=== PATIENT | female | born 1945 | race Caucasian/White ===

== ENCOUNTER 2021-03-18 19:03 | Inpatient (IN) ==
[2021-03-18] MEDS ORDERED: ACETAMINOPHEN 325 MG TABLET PO ONE ×2 (19:10→20:13)
[2021-03-18 20:12] LABS: Hematocrit 37.6 % (36.0-48.0); Mean Cell Volume 101.9 fL (80.0-100.0); Mean Corpuscular HGB Conc 31.9 g/dL (31.0-36.0); Mean Platelet Volume 10.8 fL (7.4-10.4); Platelet Count 265 K/mcL (140-440); RBC 3.69 M/mcL (4.00-5.20); Red Cell Distribution Width 18.3 % (11.5-14.5)
[2021-03-18] MEDS ORDERED: LEVOFLOXACIN 750 MG/150 ML BAG IV ONE (20:13)
[2021-03-18] MEDS ORDERED: 0.9 % SODIUM CHLORIDE 1,000 ML IV ONE ×3 (20:13→21:05)
[2021-03-18 20:24] LABS: Appearance,Urine HAZY (Clear); Bilirubin,Urine NEG (Negative); Color,Urine Yellow; Glucose,Urine (UA) NEG (Negative); Ketones,Urine 5 mg/dL (Negative); Leukocyte Esterase,Urine NEG /ug (Negative); Mucus,Urine FEW /hpf; Nitrate,Urine NEG (Negative); Protein,Urine 100 mg/dL (Negative); Urine RBC < 1 /hpf (0-3); Urine Squamous Epithelial Cell 0 /hpf (0-4); Urine WBC < 1 /hpf (0-4); Urobilinogen,Urine NEG
[2021-03-18 20:37] LABS: ALT/SGPT 71 U/L (<40); AST/SGOT 60 U/L (<32); Albumin 3.4 gm/dL (3.2-5.2); Albumin/Globulin Ratio 0.8 (1.0-2.3); Alkaline Phosphatase 99 U/L (39-117); Bilirubin,Total 0.4 mg/dL (0.1-1.0); Blood Urea Nitrogen 23 mg/dL (8-23); Calcium 9.1 mg/dL (8.6-10.4); Carbon Dioxide 20 mmol/L (22-30); Chloride 100 mmol/L (96-108); Globulin 4.1 gm/dL (2.2-3.7); Glomerular Filtration Rate 44; Glucose 113 mg/dL (70-105)
[2021-03-18 20:58] LABS: Band Neutrophils % 15 % (0-10); Lymphocytes % 4 % (15-49); Monocytes % (Manual) 2 % (1-12); Platelet Estimate NORMAL (Normal); RBC Morphology NORMAL (Normal); Segmented Neutrophils % 79 % (38-78)
--- NOTE | 2021-03-18 21:01 | Emergency Department Note ---
Weakness HPI General Chief complaint: Weakness Stated complaint: Weakness Time Seen by Provider: 03/18/21 19:25 Source: patient and EMS Mode of arrival: EMS Limitations: no limitations History of Present Illness HPI Narrative: Narrative: 75-year-old female presents to the emergency department after arrival in [facility] [place]. She began to feel weak 1 day ago (yesterday) and it got worse today she finds herself too weak to stand. She has been having trouble breathing which she attributes to her COPD. She denies any pain associated with this. Nothing makes it better or worse. Not associated with any recent injury. She did have a Covid infection and subsequently Covid vaccine in the past. MD Complaint: generalized weakness Onset (ago): day(s) (1) Duration: constant Location: generalized Migration: none Severity: severe Improves with: none Worsens with: none Context: other (Concurrent with a new fever.) Associated symptoms: Reports fever/chills Related Data Home Medications Medication Instructions Recorded Confirmed amlodipine 2.5 mg PO QDAY 03/18/21 03/18/21 budesonide-formoterol [Symbicort] 2 puff INHALATION BID 03/18/21 03/18/21 bupropion HCl 150 mg PO QAM 03/18/21 03/18/21 metoprolol succinate 50 mg PO QDAY 03/18/21 03/18/21 simvastatin 20 mg PO QHS 03/18/21 03/18/21 umeclidinium [Incruse Ellipta] 2 inh INHALATION DAILYP PRN 03/18/21 03/18/21 Allergies Allergy/AdvReac Type Severity Reaction Status Date / Time No Known Drug Allergies Allergy Verified 03/18/21 19:10 Review of Systems ROS ROS Narrative: Narrative: Constitutional: Reports fever and chills Eyes: Denies eye pain ENT ED: Denies throat pain Cardiovascular: Denies chest pain Respiratory: Reports shortness of breath Gastrointestinal: Denies abdominal pain, nausea and vomiting Genitourinary: Reports other (Difficulty urinating); Denies dysuria Integumentary: Denies rash Neurological: Reports headache and dizziness Psychiatric: Denies depression Hematological/Lymphatic: Denies easy bleeding Allergic/Immunologic: Denies facial swelling PFSH Narrative Patient History Narrative: Narrative: Medical/Surgical/Family History All Active Problems (Updated 03/19/21 @ 08:36 by Kingsley Bryson MD) Sepsis (Acute) Left upper lobe pneumonia (Acute) Mixed dyslipidemia (Acute) Essential (primary) hypertension (Acute) Stage 1 acute kidney injury (Acute) Clinical sepsis (Acute) COPD (chronic obstructive pulmonary disease) (Acute) Community acquired pneumonia (Acute) Acute and chronic respiratory failure (Acute) Social History Smoking Status: Former smoker Exam Narrative Narrative: Narrative: General Limitations: no limitations General appearance: Present alert and in distress Head Head: Present atraumatic and normocephalic Eye Eye: Present PERRL and EOMI ENT ENT: Present mucous membranes moist Neck Neck: Present full ROM and trachea midline Chest Chest: Present symmetric chest wall rise Respiratory Respiratory: Present respiratory distress and wheezes (Small wheeze anterior.) Cardiovascular Cardiovascular: Present normal rhythm and tachycardia Adbominal Abdominal: Present soft and other (Obese) Extremities Extremities: Present full ROM Back Back: Present normal inspection; Absent tenderness Neurological Neurological: Present alert and oriented X3 Psychiatric Psychiatric: Present normal affect and normal mood Skin Skin: Present warm (WNL) Course Reevaluation(s) Reevaluation #1: Patient returned from chest x-ray. I advised her that her chest x-ray showed a left upper lobe infiltrate/pneumonia. I advised her that her white count was elevated at 16,000. I advised her that she had sepsis and that we would be admitting her to the hospital. Patient was agreeable to all of that as was the . Patient is receiving her blood culture now and will be started on her Levaquin as soon as that blood draw is completed. Patient does not meet criteria for severe sepsis. Time: 20:50 Reevaluation #2: I discussed the case with the hospitalist. I advised him that the patient had sepsis and required admission. I reviewed with the hospitalist that the patient was tachycardic Time: 21:40 Vital Signs Vital signs: Vital Signs Temperature 104.0 F H 03/18/21 19:04 Pulse Rate 106 H 03/18/21 19:04 Respiratory Rate 22 03/18/21 19:04 Blood Pressure 170/77 03/18/21 19:04 Pulse Oximetry (%) 90 03/18/21 19:04 Temperature 97.2 F 03/19/21 07:42 Pulse Rate 87 03/19/21 07:42 Respiratory Rate 20 03/19/21 07:42 Blood Pressure 125/69 03/19/21 07:42 Pulse Oximetry (%) 93 03/19/21 07:42 MDM MDM Narrative Medical decision making narrative: Narrative: 75-year-old female presents to the emergency department with fever of 103.8 and tachycardia of 101. She is weak and having trouble breathing. Differential diagnosis would include sepsis, urinary tract infection, pneumonia, COPD exacerbation, pulmonary embolus Chest x-ray revealed a left upper lobe infiltrate. White count was elevated at 16,000 and the respiratory rate was elevated at 22. Patient met the criteria fo r sepsis. She did not meet the criteria for severe sepsis as she had a normal platelet count normal bilirubin normal lactate of 1.3 a UA that was unremarkable and a creatinine of only 1.2. I recognized earlier that she had likely sepsis and so do 2 sets of blood cultures followed by Levaquin 750 mg IV prior to the 3-hour alejandro. Patient was bolused 3 L of normal saline which was greater than 30 mL/kg. Patient improved with the IV fluid but remained tachycardic and needed hospitalization. I co ntacted our hospitalist who agreed to meet the patient for further care. Diagnosis 1 is sepsis #2 is pneumonia Lab Data Result diagrams: 03/18/21 19:28 03/18/21 19:28 Labs: Lab Results 03/18/21 03/18/21 03/18/21 Range/Units 19:28 19:28 19:28 WBC 16.0 H (4.5-11.0) K/mcL RBC 3.69 L (4.00-5.20) M/mcL Hgb 12.0 (12.0-15.0) g/dL Hct 37.6 (36.0-48.0) % MCV 101.9 H (80.0-100.0) fL MCH 32.5 (26.0-34.0) pg MCHC 31.9 (31.0-36.0) g/dL RDW 18.3 H (11.5-14.5) % Plt Count 265 (140-440) K/mcL MPV 10.8 H (7.4-10.4) fL Seg Neutrophils % 79 H (38-78) % Band Neutrophils % 15 H (0-10) % Lymphocytes % 4 L (15-49) % Monocytes % (Manual) 2 (1-12) % Platelet Estimate Normal (Normal) RBC Morphology Normal (Normal) VBG Lactic Acid 1.3 (0.5-2.0) mmol/L Sodium 136 (133-145) mmol/L Potassium 4.2 (3.3-5.1) mmol/L Chloride 100 (96-108) mmol/L Carbon Dioxide 20 L (22-30) mmol/L Anion Gap 16.0 (8.0-16.0) BUN 23 (8-23) mg/dL Creatinine 1.2 H (0.6-1.1) mg/dL GFR Calculation 44 Glucose 113 H (70-105) mg/dL Calcium 9.1 (8.6-10.4) mg/dL Total Bilirubin 0.4 (0.1-1.0) mg/dL AST 60 H (<32) U/L ALT 71 H (<40) U/L Alkaline Phosphatase 99 (39-117) U/L Troponin T (<0.03) ng/mL Total Protein 7.5 (5.9-8.4) gm/dL Albumin 3.4 (3.2-5.2) gm/dL Globulin 4.1 H (2.2-3.7) gm/dL Albumin/Globulin Ratio 0.8 L (1.0-2.3) Procalcitonin (<0.10) ng/mL Urine Color Urine Appearance (Clear) Urine pH (5.0-9.0) Ur Specific [place] (1.000-1.035) Urine Protein (Negative) mg/dL Urine Glucose (UA) (Negative) mg/dL Urine Ketones (Negative) mg/dL Urine Occult Blood (Negative) mg/dL Urine Nitrate (Negative) Urine Bilirubin (Negative) mg/dL Prot Sulfosalicylic Acd Urine Urobilinogen mg/dL Ur Leukocyte Esterase (Negative) /ug Urine RBC (0-3) /hpf Urine WBC (0-4) /hpf Ur Squamous Epith Cells (0-4) /hpf Ur Transition Epith Cell Ur Renal Epithelial Cell Calcium Carbonate Cryst Calcium Phosphate Cryst Calcium Oxalate Crystal Leucine Crystals Cystine Crystals Uric Acid Crystals Triple Phos Crystals Tyrosine Crystals Other Crystals Amorphous Crystals Urine Bacteria (0) /hpf Cellular Casts Epithelial Casts Fatty Casts Hyaline Casts Granular Casts Waxy Casts Broad Casts RBC Casts WBC Casts Other Casts Urine Mucus (None) /hpf Urine Trichomonas Ur Yeast w Hyphae Urine Yeast (Budding) Urine Sperm Ur Oval Fat Bodies Ur Free Fat Droplets Ur Culture Indicated? 03/18/21 03/18/21 03/18/21 Range/Units 19:28 19:47 22:28 WBC (4.5-11.0) K/mcL RBC (4.00-5.20) M/mcL Hgb (12.0-15.0) g/dL Hct (36.0-48.0) % MCV (80.0-100.0) fL MCH (26.0-34.0) pg MCHC (31.0-36.0) g/dL RDW (11.5-14.5) % Plt Count (140-440) K/mcL MPV (7.4-10.4) fL Seg Neutrophils % (38-78) % Band Neutrophils % (0-10) % Lymphocytes % (15-49) % Monocytes % (Manual) (1-12) % Platelet Estimate (Normal) RBC Morphology (Normal) VBG Lactic Acid (0.5-2.0) mmol/L Sodium (133-145) mmol/L Potassium (3.3-5.1) mmol/L Chloride (96-108) mmol/L Carbon Dioxide (22-30) mmol/L Anion Gap (8.0-16.0) BUN (8-23) mg/dL Creatinine (0.6-1.1) mg/dL GFR Calculation Glucose (70-105) mg/dL Calcium (8.6-10.4) mg/dL Total Bilirubin (0.1-1.0) mg/dL AST (<32) U/L ALT (<40) U/L Alkaline Phosphatase (39-117) U/L Troponin T 0.02 (<0.03) ng/mL Total Protein (5.9-8.4) gm/dL Albumin (3.2-5.2) gm/dL Globulin (2.2-3.7) gm/dL Albumin/Globulin Ratio (1.0-2.3) Procalcitonin 0.42 H (<0.10) ng/mL Urine Color Yellow Urine Appearance Hazy A (Clear) Urine pH 6.0 (5.0-9.0) Ur Specific [place] 1.020 (1.000-1.035) Urine Protein 100 A (Negative) mg/dL Urine Glucose (UA) Neg (Negative) mg/dL Urine Ketones 5 A (Negative) mg/dL Urine Occult Blood 0.20 (Negative) mg/dL Urine Nitrate Neg (Negative) Urine Bilirubin Neg (Negative) mg/dL Prot Sulfosalicylic Acd TNP Urine Urobilinogen Neg mg/dL Ur Leukocyte Esterase Neg (Negative) /ug Urine RBC < 1 (0-3) /hpf Urine WBC < 1 (0-4) /hpf Ur Squamous Epith Cells 0 (0-4) /hpf Ur Transition Epith Cell TNP Ur Renal Epithelial Cell TNP Calcium Carbonate Cryst TNP Calcium Phosphate Cryst TNP Calcium Oxalate Crystal TNP Leucine Crystals TNP Cystine Crystals TNP Uric Acid Crystals TNP Triple Phos Crystals TNP Tyrosine Crystals TNP Other Crystals TNP Amorphous Crystals TNP Urine Bacteria None (0) /hpf Cellular Casts TNP Epithelial Casts TNP Fatty Casts TNP Hyaline Casts TNP Granular Casts TNP Waxy Casts TNP Broad Casts TNP RBC Casts TNP WBC Casts TNP Other Casts TNP Urine Mucus Few A (None) /hpf Urine Trichomonas TNP Ur Yeast w Hyphae TNP Urine Yeast (Budding) TNP Urine Sperm TNP Ur Oval Fat Bodies TNP Ur Free Fat Droplets TNP Ur Culture Indicated? TNP ED POC Tests ED POC Tests: [facility]ALL - Influenza A Negative [place] - Influenza B Negative [place] - SARS Antigen Negative EKG Data EKG #1: EKG attestation: Yes I reviewed and interpreted this EKG. EKG shows normal: sinus rhythm Rate: tachycardia [place]/QRS: left axis deviation ST segment elevation in: None ST segment depression in: None Interpretation: other (Abnormal EKG. Sinus tachycardia with left axis deviation.) Discharge Plan Patient/Caregiver Discharge Instructions Pt seen by WOODS MANAGER/PA only: No Clinical Impression: Sepsis Qualifiers: Sepsis type: sepsis due to unspecified organism Sepsis acute organ dysfunction status: without acute organ dysfunction Qualified Code(s): A41.9 - Sepsis, unspecified organism Left upper lobe pneumonia Qualifiers: Pneumonia type: due to unspecified organism Qualified Code(s): J18.9 - Pneumonia, unspecified organism Activity: as instructed Patient Disposition: Xfer As Inpt ([facility]) Condition: Fair Discharge Date/Time: 03/18/21 23:11 Discharge Location: [facility]
[2021-03-18] MEDS ORDERED: ONDANSETRON 4 MG/2 ML VIAL IV PRN (22:21)
[2021-03-18] MEDS ORDERED: hydrALAZINE 20 MG/ML VIAL IV PRN (22:25)
[2021-03-18] MEDS ORDERED: IPRATROPIUM/ALBUTEROL 3 ML AMPUL.NEB NEB PRN (22:25)
[2021-03-18] MEDS ORDERED: guaiFENesin/DEXTROMETHORPHAN ORAL SOL PO PRN (22:25)
--- NOTE | 2021-03-18 22:37 | Internal Med History&Physical ---
HPI History of Present Illness Patient information: Note initiated : 03/18/21 at 10:26 pm Service Date, if different from initiated Date: [] Patient: Nella Dash 75 y/o F admitted on for Weakness. Chief Complaint: [pneumonia] History of present illness: Ms. Dash is a 75 year old F history of COPD, essential hypertension, mixed dyslipidemia, Covid pneumonia in summer 2019, status post Covid vaccinations, presenting with 1 week history of gradual onset, gradually worsening general body weakness. She has been on a cruise ship and she just got off from it yesterday. She is complaining of 1 week history of gradually progressing general body weakness. She is complaining of shortness of breath and nonproductive cough but no change from her baseline since she had COPD. She denies wheezing. She denies chest pain or chest tightness or palpitations. She denies subjective fever or chills or diaphoresis. Due to her symptoms, she decided to come to our ED for further evaluations. Vital signs significant for fever with T-max 39.9, and tachypnea with rate of breathing to the mid 20s, with rest of the vital signs within normal limits. Labs significant for leukocytosis with WBC 16.0. Creatinine 1.2. Lactic acid 1.3. Chest x-ray preliminary result suggestive of right upper lobe infiltrates suggestive of right upper lobe pneumonia. Constitutional Constitutional: Present weakness; Absent chills, excessive sweating, fatigue and fever(s) EENT Eyes: Absent blurry vision, change in vision, loss of vision and other visual disturbances Ears: Absent decreased hearing and tinnitus Nose, mouth and throat: Absent abnormal hearing, dry mouth, headache(s), nasal congestion and sore throat Cardiovascular Cardiovascular: Absent chest pain, chest pain at rest, edema, irregular heart rhythm and palpatations Respiratory Respiratory: Present cough and dyspnea; Absent wheezing Gastrointestinal Gastrointestinal: Absent abdominal pain, constipation, diarrhea, nausea and vomiting Musculoskeletal Musculoskeletal: Absent back pain, deformity, limited range of motion, muscle cramps, muscle weakness and numbness Integumentary Integumentary: Absent lesions, rash and wounds Neurological Neurological: Absent focal weakness, headache(s) and numbness Psychiatric Psychiatric: Absent anxiety, depression and hallucinations PFSH PFSH All Active Problems (Updated 03/18/21 @ 22:20 by Himanshu Contreras MD) Mixed dyslipidemia (Acute) Essential (primary) hypertension (Acute) Stage 1 acute kidney injury (Acute) Clinical sepsis (Acute) COPD (chronic obstructive pulmonary disease) (Acute) Community acquired pneumonia (Acute) Acute and chronic respiratory failure (Acute) MEDS/ALLERGIES Home Medications and Allergies Home Medications Medication Instructions Recorded Confirmed Type amlodipine 2.5 mg PO QDAY 03/18/21 03/18/21 History budesonide-formoterol [Symbicort] 2 puff INHALATION BID 03/18/21 03/18/21 History bupropion HCl 150 mg PO QAM 03/18/21 03/18/21 History metoprolol succinate 50 mg PO QDAY 03/18/21 03/18/21 History simvastatin 20 mg PO QHS 03/18/21 03/18/21 History umeclidinium [Incruse Ellipta] 2 inh INHALATION DAILYP PRN 03/18/21 03/18/21 History Allergies Allergy/AdvReac Type Severity Reaction Status Date / Time No Known Drug Allergies Allergy Verified 03/18/21 19:10 EXAM Constitutional Vitals: Temp Pulse Resp BP Pulse Ox 38.4 C H 89 25 H 158/69 92 03/18/21 22:06 03/18/21 22:06 03/18/21 22:06 03/18/21 21:47 03/18/21 22:06 General appearance: cooperative and no acute distress Head Head exam: Present atraumatic and normocephalic Eye Eye exam: Present EOMI and PERRL ENT ENT exam: Present mucous membranes moist, normal exam and normal external ear exam Neck Neck exam: Present normal inspection; Absent lymphadenopathy, tenderness and thyromegaly Respiratory Respiratory exam: Absent accessory muscle use, respiratory distress and wheezes Additional comments: Decreased breath sound in all lung peters. Cardiovascular Cardiovascular exam: Present normal rate and rhythm; Absent JVD GI/Abdominal GI/Abdominal exam: Present normal bowel sounds and soft; Absent organomegaly and tenderness Additional comments: Oliver catheter in place. Extremities Exam Extremities exam: Present full ROM, normal capillary refill and normal inspection; Absent tenderness Neurological Exam Neurological exam: Present alert, CN II-XII intact and oriented X3; Absent motor sensory deficit Psychiatric Psychiatric exam: Present normal affect and normal mood; Absent anxious and depressed Skin Skin exam: Present dry and intact DATA Data Completed and Pending Labs: Labs from last 24 hours 03/18/21 03/18/21 03/18/21 19:47 19:28 19:28 WBC RBC Hgb Hct MCV MCH MCHC RDW Plt Count MPV Seg Neutrophils % Band Neutrophils % Lymphocytes % Monocytes % (Manual) Platelet Estimate RBC Morphology VBG Lactic Acid Sodium 136 Potassium 4.2 Chloride 100 Carbon Dioxide 20 L Anion Gap 16.0 BUN 23 Creatinine 1.2 H GFR Calculation 44 Glucose 113 H Calcium 9.1 Total Bilirubin 0.4 AST 60 H ALT 71 H Alkaline Phosphatase 99 Troponin T 0.02 Total Protein 7.5 Albumin 3.4 Globulin 4.1 H Albumin/Globulin Ratio 0.8 L Urine Color Yellow Urine Appearance Hazy A Urine pH 6.0 Ur Specific [place] 1.020 Urine Protein 100 A Urine Glucose (UA) Neg Urine Ketones 5 A Urine Occult Blood 0.20 Urine Nitrate Neg Urine Bilirubin Neg Prot Sulfosalicylic Acd TNP Urine Urobilinogen Neg Ur Leukocyte Esterase Neg Urine RBC < 1 Urine WBC < 1 Ur Squamous Epith Cells 0 Ur Transition Epith Cell TNP Ur Renal Epithelial Cell TNP Calcium Carbonate Cryst TNP Calcium Phosphate Cryst TNP Calcium Oxalate Crystal TNP Leucine Crystals TNP Cystine Crystals TNP Uric Acid Crystals TNP Triple Phos Crystals TNP Tyrosine Crystals TNP Other Crystals TNP Amorphous Crystals TNP Urine Bacteria None Cellular Casts TNP Epithelial Casts TNP Fatty Casts TNP Hyaline Casts TNP Granular Casts TNP Waxy Casts TNP Broad Casts TNP RBC Casts TNP WBC Casts TNP Other Casts TNP Urine Mucus Few A Urine Trichomonas TNP Ur Yeast w Hyphae TNP Urine Yeast (Budding) TNP Urine Sperm TNP Ur Oval Fat Bodies TNP Ur Free Fat Droplets TNP Ur Culture Indicated? TNP 03/18/21 03/18/21 19:28 19:28 WBC 16.0 H RBC 3.69 L Hgb 12.0 Hct 37.6 MCV 101.9 H MCH 32.5 MCHC 31.9 RDW 18.3 H Plt Count 265 MPV 10.8 H Seg Neutrophils % 79 H Band Neutrophils % 15 H Lymphocytes % 4 L Monocytes % (Manual) 2 Platelet Estimate Normal RBC Morphology Normal VBG Lactic Acid 1.3 Sodium Potassium Chloride Carbon Dioxide Anion Gap BUN Creatinine GFR Calculation Glucose Calcium Total Bilirubin AST ALT Alkaline Phosphatase Troponin T Total Protein Albumin Globulin Albumin/Globulin Ratio Urine Color Urine Appearance Urine pH Ur Specific [place] Urine Protein Urine Glucose (UA) Urine Ketones Urine Occult Blood Urine Nitrate Urine Bilirubin Prot Sulfosalicylic Acd Urine Urobilinogen Ur Leukocyte Esterase Urine RBC Urine WBC Ur Squamous Epith Cells Ur Transition Epith Cell Ur Renal Epithelial Cell Calcium Carbonate Cryst Calcium Phosphate Cryst Calcium Oxalate Crystal Leucine Crystals Cystine Crystals Uric Acid Crystals Triple Phos Crystals Tyrosine Crystals Other Crystals Amorphous Crystals Urine Bacteria Cellular Casts Epithelial Casts Fatty Casts Hyaline Casts Granular Casts Waxy Casts Broad Casts RBC Casts WBC Casts Other Casts Urine Mucus Urine Trichomonas Ur Yeast w Hyphae Urine Yeast (Budding) Urine Sperm Ur Oval Fat Bodies Ur Free Fat Droplets Ur Culture Indicated? A/P Assessment and plan (1) Mixed dyslipidemia: Status: Acute (2) Essential (primary) hypertension: Status: Acute (3) Stage 1 acute kidney injury: Status: Acute (4) Clinical sepsis: Status: Acute (5) COPD (chronic obstructive pulmonary disease): Status: Acute (6) Community acquired pneumonia: Status: Acute (7) Acute and chronic respiratory failure: Status: Acute Narrative A/P Narrative: Assessment and Plans: 1. Community acquired pneumonia: Admit to inpatient med surg Influenza A and B screening Rapid strep test Serial lactic acid Procalcitonin Supplemental oxygen titrate to achieve spo2> 88-92% s/p 3L NS bolus given in the ED, to be followed by NS@100cc/hr Tylenol PRN fever Robitussin DM PRN cough DuoNeb NEB q4hr PRN wheezing or SOB Rocephin Zithromax cbc w/ auto diff in the morning to trend WBC 2. h/o COPD: Does not appear to be in exacerbation DuoNeb NEB q4hr PRN wheezing or SOB Symbicort 3. Stage 1 acute kidney injury: Unknown baseline creatinine level Avoid nephrotoxic agents s/p 3L NS bolus given in the ED, to be followed by NS@100cc/hr Repeat CMP in the morning to trend kidney functions 4. Essential HTN: Mildly elevated blood pressure Amlodipine Metoprolol Succinate Hydralazine 10mg IV q4-6hr PRN SBP>=180mmHg and/or DBP>=110mmHg 5. Mixed dyslipidemia: Continue statin therapy GI ppx: not currently indicated DVT ppx: Heparin Code status: full Prognosis: guarded Disposition: inpatient med surg Time Spent With Patient Time: Total time spent is greater than 50% in coordination of care (as documented) at patient's floor/unit and/or counseling patient: Total time spent with greater than 50% in coordination of care (as documented) at patient's floor/unit and/or counseling patient:: 25 - 35 minutes QUALITY Stroke Symptom Onset Unknown: No
[2021-03-18] MEDS: 0.9 % SODIUM CHLORIDE 1,000 ML IV SCH (23:26)
[2021-03-18] MEDS: cefTRIAXone 1 GM VIAL ONE ×2 (23:29→23:30)
[2021-03-18] MEDS: cefTRIAXone 1 GM in DEXTROSE 5% IN WATER 50 ML IV SCH (23:30)
[2021-03-19] MEDS: cefTRIAXone 1 GM in DEXTROSE 5% IN WATER 50 ML IV SCH (00:17)
[2021-03-19] MEDS: AZITHROMYCIN 500 MG in DEXTROSE 5% IN WATER 250 ML IV SCH ×2 (00:49→15:18)
[2021-03-19] MEDS ORDERED: IPRATROPIUM/ALBUTEROL 3 ML AMPUL.NEB NEB ONE (01:49)
[2021-03-19] MEDS: ACETAMINOPHEN 325 MG TABLET PO PRN ×2 (02:55→16:45)
[2021-03-19] MEDS ORDERED: ACETAMINOPHEN 325 MG TABLET PO ONE (02:57)
[2021-03-19] MEDS: 0.9 % SODIUM CHLORIDE 10 ML SYRINGE IV SCH ×2 (05:31→14:15)
[2021-03-19] MEDS ORDERED: Umeclidinium [Incruse Ellipta] 62.5 mcg/actuation Inhaler INH PRN (07:38)
[2021-03-19] MEDS: buPROPion 150 MG TAB.XL.24H PO SCH (08:32)
[2021-03-19] MEDS: amLODIPine 5 MG TABLET PO SCH (08:32)
[2021-03-19] MEDS: DOCUSATE SODIUM 100 MG CAPSULE PO SCH ×2 (08:32→20:47)
[2021-03-19] MEDS: METOPROLOL SUCCINATE 50 MG TAB.XL.24H PO SCH (08:32)
[2021-03-19] MEDS: Budesonide-Formoterol [Symbicort] 160-4.5 mcg Inhaler INH SCH ×2 (08:32→20:47)
[2021-03-19] MEDS: 0.9 % SODIUM CHLORIDE 1,000 ML IV SCH ×2 (08:32→11:49)
[2021-03-19] MEDS: HEPARIN 5,000 UNIT/ML VIAL SQ SCH ×2 (08:32→20:53)
--- NOTE | 2021-03-19 09:17 | XRay Report ---
HISTORY: Fever, short of breath, COPD, weakness FINDINGS: A moderate-sized alveolar infiltrate is present in the left upper lobe. It Extends to the left upper hilum. There is diffuse interstitial lung disease in the right lung, predominantly involving the right upper lobe. This could be inflammation or fibrosis. No prior study is available for comparison The heart size is within upper limits of normal. Eventration of the anterior right diaphragm is present. No pleural effusion is present. Densely calcified plaques are seen throughout the aorta. The spine has a moderate kyphotic curvature and mild arthritis. IMPRESSION: Moderate left upper lobe pneumonia Interstitial inflammation or fibrosis in the right lung Interpreted and Authenticated by: Scott Jara 03/19/21
[2021-03-19 10:49] LABS: Basophils # (Auto) 0.05 K/mcL (0.00-0.20); Basophils % (Auto) 0.4 % (0.0-2.0); Eosinophils # (Auto) 0.01 K/mcL (0.00-0.70); Eosinophils % (Auto) 0.1 % (0.0-7.0); Hematocrit 31.2 % (36.0-48.0); Hemoglobin 10.1 g/dL (12.0-15.0); Lymphocytes # (Auto) 0.38 K/mcL (1.50-4.80); Lymphocytes % (Auto) 2.9 % (15.0-49.0); Mean Corpuscular HGB Conc 32.4 g/dL (31.0-36.0); Monocytes # (Auto) 0.49 K/mcL (0.10-0.90); Monocytes % (Auto) 3.7 % (1.0-12.0); Neutrophils % (Auto) 92.9 % (38.0-78.0); Platelet Count 212 K/mcL (140-440); RBC 3.03 M/mcL (4.00-5.20); Red Cell Distribution Width 18.6 % (11.5-14.5)
[2021-03-19 11:00] LABS: ALT/SGPT 71 U/L (<40); AST/SGOT 63 U/L (<32); Albumin 2.8 gm/dL (3.2-5.2); Albumin/Globulin Ratio 0.8 (1.0-2.3); Alkaline Phosphatase 83 U/L (39-117); Bilirubin,Total 0.2 mg/dL (0.1-1.0); Blood Urea Nitrogen 16 mg/dL (8-23); Calcium 7.7 mg/dL (8.6-10.4); Carbon Dioxide 18 mmol/L (22-30); Chloride 106 mmol/L (96-108); Globulin 3.3 gm/dL (2.2-3.7); Glomerular Filtration Rate 72; Glucose 117 mg/dL (70-105)
[2021-03-19 11:23] LABS: WBC 13.1 K/mcL (4.5-11.0)
--- NOTE | 2021-03-19 11:41 | Internal Med Progress Note ---
SUBJECTIVE Subjective Patient information: Note initiated : 03/19/21 at 11:40 am Service Date, if different from initiated Date: [] Patient: Nella Dash 75 y/o F admitted on 03/18/21 for Weakness. Chief Complaint: [Pneumonia] 03/19/21:Fever with Tmax 39.3 this morning. Blood cultures no growth to date. Denies SOB. Denies cough or sputum production. c/o wheezing. c/o mild general body weakness. Constitutional Vitals: Vital Signs Temp Pulse Resp BP Pulse Ox 36.2 C 87 20 125/69 93 03/19/21 07:42 03/19/21 07:42 03/19/21 08:00 03/19/21 07:42 03/19/21 07:42 Period Temp Pulse Resp BP Sys/Hurst Pulse Ox Last 24 Hr 36.2 C-40.0 C 85-118 20-28 119-170/60-83 88-96 Intake and Output 03/18/21 03/19/21 03/19/21 21:59 05:59 13:59 Intake Total 1000 1500 240 Output Total 700 Balance 1000 800 240 Weight 83.461 kg 94.12 kg Intake & Output: Intake & Output 03/18/21 03/19/21 03/19/21 21:59 05:59 13:59 Intake Total 1000 1500 240 Output Total 700 Balance 1000 800 240 Weight 83.461 kg 94.12 kg Intake: IV 1000 1450 Sodium Chloride 0.9% 1,000 ml @ 1000 1000 Wide Open IV BOLUS ONE Rx#: [id number] Zithromax 500 mg In Dextrose 5% 250 in Water 250 ml @ 250 mls/hr IV Q24H [facility] Rx#:[id number] Rocephin 1 gm In Dextrose 5% in 50 Water 50 ml @ 100 mls/hr IV Q24H [facility] Rx#:[id number] Oral 50 240 Output: Urine Catheter Amount 700 Other: Meal Breakfast Percent of Meal Consumed 75% Urine Appearance Clear Clear Uretheral (Oliver) Clear Urine Color Pale Bright Yellow Uretheral (Oliver) Bright Yellow Stool Size Moderate Stool Color Brown Black Stool Consistency Loose Soft General appearance: cooperative and no acute distress Exam: General body weakness Head Head exam: Present atraumatic and normocephalic Eye Eye exam: Present EOMI and PERRL ENT ENT exam: Present mucous membranes moist, normal exam and normal external ear exam Neck Neck exam: Present normal inspection; Absent lymphadenopathy, tenderness and thyromegaly Respiratory Respiratory exam: Present wheezes; Absent accessory muscle use and respiratory distress Cardiovascular Cardiovascular exam: Present normal rate and rhythm; Absent JVD GI/Abdominal GI/Abdominal exam: Present normal bowel sounds and soft; Absent organomegaly and tenderness Extremities Exam Extremities exam: Present full ROM, normal capillary refill and normal inspection; Absent tenderness Neurological Exam Neurological exam: Present alert, CN II-XII intact and oriented X3; Absent motor sensory deficit Psychiatric Psychiatric exam: Present normal affect and normal mood; Absent anxious and depressed Skin Skin exam: Present dry and intact OBJ DATA Labs CBC & Chem 7: 03/19/21 09:48 03/19/21 09:48 Labs: Abnormal Lab Results 03/19/21 03/19/21 03/18/21 09:48 09:48 22:28 WBC 13.1 H RBC 3.03 L Hgb 10.1 L Hct 31.2 L MCV 103.0 H RDW 18.6 H MPV Neut % (Auto) 92.9 H Lymph % (Auto) 2.9 L Lymph # (Auto) 0.38 L Seg Neutrophils % Band Neutrophils % Lymphocytes % Absolute Neutrophils 12.15 H Carbon Dioxide 18 L Creatinine Glucose 117 H Calcium 7.7 L AST 63 H ALT 71 H Albumin 2.8 L Globulin Albumin/Globulin Ratio 0.8 L Procalcitonin 0.42 H Urine Appearance Urine Protein Urine Ketones Urine Mucus 03/18/21 03/18/21 03/18/21 19:47 19:28 19:28 WBC 16.0 H RBC 3.69 L Hgb Hct MCV 101.9 H RDW 18.3 H MPV 10.8 H Neut % (Auto) Lymph % (Auto) Lymph # (Auto) Seg Neutrophils % 79 H Band Neutrophils % 15 H Lymphocytes % 4 L Absolute Neutrophils Carbon Dioxide 20 L Creatinine 1.2 H Glucose 113 H Calcium AST 60 H ALT 71 H Albumin Globulin 4.1 H Albumin/Globulin Ratio 0.8 L Procalcitonin Urine Appearance Hazy A Urine Protein 100 A Urine Ketones 5 A Urine Mucus Few A Meds: Medications Acetaminophen (Acetaminophen 325 Mg Tablet) 650 mg PO Q6HP PRN; Protocol PRN Reason: Per Pain Protocol/Fever > 101 Last Admin: 03/19/21 02:55 Dose: 650 mg Documented by: Albuterol/Ipratropium (Ipratropium/Albuterol 3 Ml Ampul.Neb) 3 ml NEB Q4HP PRN PRN Reason: Shortness Of Breath Last Admin: 03/19/21 01:47 Dose: 3 ml Documented by: Amlodipine Besylate (Amlodipine 5 Mg Tablet) 2.5 mg PO DAILY [facility] Last Admin: 03/19/21 08:32 Dose: 2.5 mg Documented by: Bupropion HCl (Bupropion 150 Mg Tab.Xl.24h) 150 mg PO QAM [facility] Last Admin: 03/19/21 08:32 Dose: 150 mg Documented by: Ceftriaxone Sodium (Ceftriaxone 1 Gm Vial) 1 gm IV Q24H [facility] Docusate Sodium (Docusate Sodium 100 Mg Capsule) 100 mg PO BID [facility] Last Admin: 03/19/21 08:32 Dose: 100 mg Documented by: Guaifenesin (Guaifenesin/Dextromethorphan Oral Maya) 10 ml PO Q4HP PRN PRN Reason: Cough Heparin Sodium (Porcine) (Heparin 5,000 Unit/Ml Vial) 5,000 unit SQ Q12 [facility] Last Admin: 03/19/21 08:32 Dose: 5,000 unit Documented by: Hydralazine HCl (Hydralazine 20 Mg/Ml Vial) 10 mg IV Q4-6HP PRN PRN Reason: Hypertension Sodium Chloride (Sodium Chloride 0.9%) 1,000 mls @ 100 mls/hr IV .Q10H [facility] Last Admin: 03/19/21 08:32 Dose: Not Given Documented by: Azithromycin 500 mg/ Dextrose 250 mls @ 250 mls/hr IV Q24H [facility]; Protocol Stop: 03/20/21 23:29 Last Infusion: 03/19/21 02:00 Dose: Infused Documented by: Metoprolol Succinate (Metoprolol Succinate 50 Mg Tab.Xl.24h) 50 mg PO DAILY [facility] Last Admin: 03/19/21 08:32 Dose: 50 mg Documented by: Ondansetron HCl (Ondansetron 4 Mg/2 Ml Vial) 4 mg IV Q6HP PRN PRN Reason: Nausea And Vomiting Budesonide- Formoterol [ Symbicort] 160-4.5 Mcg Inhaler 2 dose INH BID [facility] Last Admin: 03/19/21 08:32 Dose: Not Given Documented by: Umeclidinium [ Incruse Ellipta] 62. 5 Mcg/Actuation Inhaler 2 dose INH DAILYP PRN PRN Reason: Shortness Of Breath Senna (Sennosides 1 Tablet) 2 tab PO HS CAROLIN Simvastatin (Simvastatin 20 Mg Tablet) 20 mg PO QHS [facility] Sodium Chloride (0.9 % Sodium Chloride 10 Ml Syringe) 10 ml IV Q8 [facility] Last Admin: 03/19/21 05:31 Dose: Not Given Documented by: A/P Assessment and plan (1) Anemia, macrocytic: Status: Acute (2) Sepsis: Status: Acute Qualifiers: Sepsis acute organ dysfunction status: without acute organ dysfunction Sepsis type: sepsis due to unspecified organism Qualified Code(s): A41.9 - Sepsis, unspecified organism (3) Left upper lobe pneumonia: Status: Acute Qualifiers: Pneumonia type: due to unspecified organism Qualified Code(s): J18.9 - Pneumonia, unspecified organism (4) Mixed dyslipidemia: Status: Acute (5) Essential (primary) hypertension: Status: Acute (6) Stage 1 acute kidney injury: Status: Acute (7) Clinical sepsis: Status: Acute (8) COPD (chronic obstructive pulmonary disease): Status: Acute (9) Community acquired pneumonia: Status: Acute (10) Acute and chronic respiratory failure: Status: Acute Narrative A/P Narrative: Assessment and Plans: 1. Community acquired pneumonia: Stays in inpatient med surg Influenza A and B screening Rapid strep test pending Serial lactic acid 1.3 Procalcitonin 0.42 Supplemental oxygen titrate to achieve spo2> 88-92% s/p 3L NS bolus given in the ED, to be followed by NS@100cc/hr Tylenol PRN fever Robitussin DM PRN cough DuoNeb NEB q4hr PRN wheezing or SOB Rocephin Zithromax cbc w/ auto diff in the morning to trend WBC 2. h/o COPD: Does not appear to be in exacerbation DuoNeb NEB q4hr PRN wheezing or SOB Symbicort 3. Stage 1 acute kidney injury: RESOLBVED Unknown baseline creatinine level Avoid nephrotoxic agents s/p 3L NS bolus given in the ED, to be followed by NS@100cc/hr Repeat CMP in the morning to trend kidney functions 4. Essential HTN: Mildly elevated blood pressure Amlodipine Metoprolol Succinate Hydralazine 10mg IV q4-6hr PRN SBP>=180mmHg and/or DBP>=110mmHg 5. Mixed dyslipidemia: Continue statin therapy 6. Macrocytic anemia: cbc w/ auto diff in the morning to trend H/H; transfuse pRBC if hemoglobin <7.0, active bleeding, or symptomatic GI ppx: not currently indicated DVT ppx: Heparin Code status: full Prognosis: guarded Disposition: inpatient med surg Time Spent With Patient Time: Total time spent is greater than 50% in coordination of care (as documented) at patient's floor/unit and/or counseling patient: Total time spent with greater than 50% in coordination of care (as documented) at patient's floor/unit and/or counseling patient:: 25 - 35 minutes QUALITY Stroke Symptom Onset Unknown: No VTE Deep Vein Thrombosis/Pulmonary Embolism Present on Admission: No
[2021-03-19] MEDS: cefTRIAXone 1 GM VIAL IV SCH (15:17)
--- NOTE | 2021-03-19 16:28 | EKG ---
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 Measurements Intervals [place] Rate: 107 P: 29 MS: 153 QRS: -15 QRSD: 90 T: 48 QT: 340 QTc: 454 Interpretive Statements NO PRIOR TRACING FOR COMPARISON Sinus tachycardia Abnormal R-wave progression, early transition BORDERLINE TRACING Electronically Signed On 03-19-2021 16:27:53 PDT by Vick Baez M.D. /[email or web address]/[email or web address]/[id number]/[id number]
[2021-03-19] MEDS ORDERED: SENNOSIDES 1 TABLET PO SCH (21:00)
[2021-03-19] MEDS ORDERED: SIMVASTATIN 20 MG TABLET PO SCH (21:00)
[2021-03-20] MEDS: 0.9 % SODIUM CHLORIDE 1,000 ML IV SCH ×2 (04:34)
[2021-03-20] MEDS: 0.9 % SODIUM CHLORIDE 10 ML SYRINGE IV SCH ×2 (05:33)
[2021-03-20 07:58] LABS: Basophils % (Auto) 1.2 % (0.0-2.0); Eosinophils # (Auto) 0.09 K/mcL (0.00-0.70); Eosinophils % (Auto) 1.1 % (0.0-7.0); Hematocrit 32.2 % (36.0-48.0); Hemoglobin 10.1 g/dL (12.0-15.0); Lymphocytes # (Auto) 0.65 K/mcL (1.50-4.80); Lymphocytes % (Auto) 7.8 % (15.0-49.0); Mean Cell Volume 102.2 fL (80.0-100.0); Mean Corpuscular HGB Conc 31.4 g/dL (31.0-36.0); Monocytes # (Auto) 0.48 K/mcL (0.10-0.90); Monocytes % (Auto) 5.7 % (1.0-12.0); Platelet Count 233 K/mcL (140-440); RBC 3.15 M/mcL (4.00-5.20); Red Cell Distribution Width 18.2 % (11.5-14.5); WBC 8.4 K/mcL (4.5-11.0)
[2021-03-20] MEDS: amLODIPine 5 MG TABLET PO SCH (08:29)
[2021-03-20] MEDS: buPROPion 150 MG TAB.XL.24H PO SCH (08:29)
[2021-03-20] MEDS: METOPROLOL SUCCINATE 50 MG TAB.XL.24H PO SCH (08:30)
--- NOTE | 2021-03-20 08:36 | Discharge Summary ---
Discharge Provider Provider Patient information: Note initiated : 03/20/21 at 8:34 am Service Date, if different from initiated Date: [] Patient: Nella Dash 75 y/o F admitted on 03/18/21 for Weakness. Chief Complaint: [Pneumonia] Date of admission: 03/18/21 23:10 Discharge date: 03/20/21 Primary care physician: Unknown Unknown Consults: 03/18/21 Consult to Physician [CONS] Stat Comment: Consulting Provider: Himanshu Contreras Reason For Exam: Physician to Consult Discharge Meds Discharge Medications Home Medications Incruse Ellipta 2 inh INHALATION DAILYP PRN 03/18/21 [History Confirmed 03/18/21 Last Taken 03/18/21] amlodipine 2.5 mg PO QDAY 03/18/21 [History Confirmed 03/18/21 Last Taken 03/17/21 08:00] budesonide-formoterol [Symbicort] 2 puff INHALATION BID 03/18/21 [History Confirmed 03/18/21 Last Taken 03/18/21] bupropion HCl 150 mg PO QAM 03/18/21 [History Confirmed 03/18/21 Last Taken 03/17/21 08:00] metoprolol succinate 50 mg PO QDAY 03/18/21 [History Confirmed 03/18/21 Last Taken 03/17/21 08:00] simvastatin 20 mg PO QHS 03/18/21 [History Confirmed 03/18/21 Last Taken 03/17/21 16:00] dextromethorphan-guaifenesin [Robafen DM Cough] 10 ml PO Q4HP PRN #500 ml 03/20/21 [Rx Last Taken Unknown] levofloxacin 750 mg PO QDAY #5 tab 03/20/21 [Rx Last Taken Unknown] COURSE Hospital Course Hospital course: Patient was admitted on March 18, 2021 for community-acquired pneumonia. After blood cultures were collected, patient was started on IV fluid resuscitation as well as antibiotics in terms of Rocephin and Zithromax. Blood culture has been no growth to date. By March 20, 2021, patient has been afebrile for more than 24 hours, and the leukocytosis resolved, tolerating room air, and otherwise reached clinical stability. As such, decision was made to discharge patient home with instruction to follow-up with PCP in 2 weeks, as well as prescriptions of oral antibiotics to finish the course of treatment. All questions were answered prior to patient being physically discharged. Discharge diagnosis: pneumonia Time Spent with Patient Time attestation: Total time spent providing and/or coordinating discharge services: Patient was admitted on March 18, 2021 for community-acquired pneumonia. After blood cultures were collected, patient was started on IV fluid resuscitation as well as antibiotics in terms of Rocephin and Zithromax. Blood culture has been no growth to date. By March 20, 2021, patient has been afebrile for more than 24 hours, and the leukocytosis resolved, tolerating room air, and otherwise reached clinical stability. As such, decision was made to discharge patient home with i nstruction to follow-up with PCP in 2 weeks, as well as prescriptions of oral antibiotics to finish the course of treatment. All questions were answered prior to patient being physically discharged. EXAM Constitutional Vitals: Temp Pulse Resp BP Pulse Ox 36.8 C 76 22 153/79 93 03/20/21 08:00 03/20/21 08:00 03/20/21 08:00 03/20/21 08:00 03/20/21 08:00 General appearance: cooperative and no acute distress Head Head exam: Present atraumatic and normocephalic Eye Eye exam: Present EOMI and PERRL ENT ENT exam: Present mucous membranes moist, normal exam and normal external ear exam Neck Neck exam: Present normal inspection; Absent lymphadenopathy, tenderness and thyromegaly Respiratory Respiratory exam: Absent accessory muscle use, respiratory distress and wheezes Cardiovascular Cardiovascular exam: Present normal rate and rhythm; Absent JVD GI/Abdominal GI/Abdominal exam: Present normal bowel sounds and soft; Absent organomegaly and tenderness Extremities Exam Extremities exam: Present full ROM, normal capillary refill and normal inspection; Absent tenderness Neurological Exam Neurological exam: Present alert, CN II-XII intact and oriented X3; Absent motor sensory deficit Psychiatric Psychiatric exam: Present normal affect and normal mood; Absent anxious and depressed Skin Skin exam: Present dry and intact Discharge Data Data Completed and Pending Labs on day of discharge: Labs from last 24 hours 03/20/21 03/20/21 03/19/21 06:06 06:06 09:48 WBC 8.4 RBC 3.15 L Hgb 10.1 L Hct 32.2 L MCV 102.2 H MCH 32.1 MCHC 31.4 RDW 18.2 H Plt Count 233 MPV 11.0 H Neut % (Auto) 84.2 H Lymph % (Auto) 7.8 L [place] % (Auto) 5.7 Eos % (Auto) 1.1 Baso % (Auto) 1.2 Lymph # (Auto) 0.65 L [place] # (Auto) 0.48 Eos # (Auto) 0.09 Baso # (Auto) 0.10 Absolute Neutrophils 7.03 Sodium Pending 136 Potassium Pending 3.6 Chloride Pending 106 Carbon Dioxide Pending 18 L Anion Gap Pending 12.0 BUN Pending 16 Creatinine Pending 0.8 GFR Calculation Pending 72 Glucose Pending 117 H Calcium Pending 7.7 L Total Bilirubin Pending 0.2 AST Pending 63 H ALT Pending 71 H Alkaline Phosphatase Pending 83 Total Protein Pending 6.1 Albumin Pending 2.8 L Globulin Pending 3.3 Albumin/Globulin Ratio Pending 0.8 L 03/19/21 09:48 WBC 13.1 H RBC 3.03 L Hgb 10.1 L Hct 31.2 L MCV 103.0 H MCH 33.3 MCHC 32.4 RDW 18.6 H Plt Count 212 MPV 10.0 Neut % (Auto) 92.9 H Lymph % (Auto) 2.9 L [place]ruff % (Auto) 3.7 Eos % (Auto) 0.1 Baso % (Auto) 0.4 Lymph # (Auto) 0.38 L [place] # (Auto) 0.49 Eos # (Auto) 0.01 Baso # (Auto) 0.05 Absolute Neutrophils 12.15 H Sodium Potassium Chloride Carbon Dioxide Anion Gap BUN Creatinine GFR Calculation Glucose Calcium Total Bilirubin AST ALT Alkaline Phosphatase Total Protein Albumin Globulin Albumin/Globulin Ratio Preliminary micro results at discharge 03/18/21 21:10 Blood Culture - Preliminary Blood 03/18/21 21:00 Blood Culture - Preliminary Blood Discharge Plan Patient/Caregiver Discharge Instructions Activity: as per physical therapy and as instructed Diet: Regular Diet Prescriptions: New dextromethorphan-guaifenesin [Robafen DM Cough] 10-100 mg/5 mL Liquid 10 ml PO Q4HP PRN (Reason: Cough) Qty: 500 RF: 0 levofloxacin 750 mg tablet 750 mg PO QDAY Qty: 5 RF: 0 Continued amlodipine 2.5 mg Tablet 2.5 mg PO QDAY RF: 0 simvastatin 20 mg Tablet 20 mg PO QHS RF: 0 bupropion HCl 150 mg Tablet Extended Release 24 Hr 150 mg PO QAM RF: 0 budesonide-formoterol [Symbicort] 160-4.5 mcg/actuation Hfa Aerosol Inhaler 2 puff INHALATION BID RF: 0 Incruse Ellipta 62.5 mcg/actuation blister with device 2 inh INHALATION DAILYP PRN (Reason: Shortness Of Breath) RF: 0 metoprolol succinate 50 mg Capsule,Sprinkle,Er 24hr 50 mg PO QDAY RF: 0 Follow Up Plan Patient Disposition: Home, Self-Care Prognosis: Fair Rehab Potential: Good I certify that the patient requires SNF services: No Overall status at discharge: patient is back to baseline Discharge Orders: Discharge Order (Routine); Ordered 03/20/21 Ordered By: Himanshu EPPERSON VTE Deep Vein Thrombosis/Pulmonary Embolism Present on Admission: No
[2021-03-20 08:45] LABS: ALT/SGPT 85 U/L (<40); AST/SGOT 73 U/L (<32); Albumin 2.6 gm/dL (3.2-5.2); Albumin/Globulin Ratio 0.7 (1.0-2.3); Alkaline Phosphatase 94 U/L (39-117); Bilirubin,Total 0.2 mg/dL (0.1-1.0); Blood Urea Nitrogen 15 mg/dL (8-23); Calcium 7.9 mg/dL (8.6-10.4); Carbon Dioxide 16 mmol/L (22-30); Chloride 109 mmol/L (96-108); Globulin 3.6 gm/dL (2.2-3.7); Glomerular Filtration Rate 84; Glucose 84 mg/dL (70-105)
[2021-03-20] MEDS: HEPARIN 5,000 UNIT/ML VIAL SQ SCH (08:47)
[2021-03-20] MEDS: Budesonide-Formoterol [Symbicort] 160-4.5 mcg Inhaler INH SCH (08:47)
[2021-03-20] MEDS: DOCUSATE SODIUM 100 MG CAPSULE PO SCH (08:47)
[2021-03-20] MEDS: cefTRIAXone 1 GM VIAL IV SCH (09:24)
[2021-03-20] MEDS ORDERED: AZITHROMYCIN 250 MG TABLET PO ONE (09:43)
[2021-03-20 15:29] LABS: Neutrophils % (Auto) 84.2 % (38.0-78.0)
== END 2021-03-20 11:20 | disposition home or self-care (01) | DRG 871 ==
LOC: ED 19:03 → MEDSUR 23:10
PROVIDERS: ADMIT Internal Medicine; ATTEND Internal Medicine